=== PATIENT | male | born 1955 | race Two or more races ===

== ENCOUNTER 2019-06-20 20:17 | Emergency (ER) | payer OTHER ==
[~2019-06-20] VITALS: Ht 167.6 cm; Wt 72.6 kg
[2019-06-20] MEDS ORDERED: PLAVIX75 MG (20:28)
[2019-06-20] MEDS ORDERED: LIPITOR20 MG (20:28)
[2019-06-20] MEDS ORDERED: LOSARTAN POTASS50 MG (20:28)
== END 2019-06-20 22:30 | disposition home or self-care (01) ==
LOC: ER 20:17
DX: M62.830 Muscle spasm of back (principal); M47.896 Other spondylosis, lumbar region